=== PATIENT | male | born 1955 | race Caucasian/White ===

== ENCOUNTER 2021-02-28 19:52 | Emergency (ER) | payer MEDICARE, OTHER ==
[~2021-02-28 19:52] MED LIST: D3-5050000 UNIT PO; PANTOPRAZOLE SO40 MG PO; PERCOCET 10/321 EACH PO; SILDENAFIL CIT100 MG PO; TESTOSTERO200 MG/1 M SC/PO
[2021-02-28 20:52] LABS: BASOPHIL 0.7 % (0-2); EOSINOPHIL 6.5 % (0-7); HCT 53.9 % (42.0-52.0); HGB 18.4 g/dl (13.2-18.0); LYMPHOCYTE 29.1 % (15-48); MCHC 34.1 g/dL (32.0-36.0); MCV 90.7 fL (78.0-100.0); MONOCYTE 7.3 % (0-12); MPV 9.1 fL (6.0-9.5); NEUTROPHIL 56.1 % (41-80); NRBC 0; PLT 264 K/uL (150-400); RBC 5.94 M/uL (4.70-6.00); RDW 14.6 % (11.5-14.0); WBC 7.1 K/uL (4.0-10.5)
[2021-02-28 20:59] LABS: INR 1.04 (0.9-1.2); PTT 37.7 SECONDS (24.4-34.7)
[2021-02-28 21:03] LABS: ALBUMIN 3.8 g/dL (3.4-5.0); BILIRUBIN - TOTAL 0.5 mg/dL (0.2-1.0); BUN/CREAT RATIO (CALC) 14.9 RATIO; CREATININE 0.74 mg/dL (0.67-1.17); GLOBULIN (CALCULATION) 4.4 g/dL; MAGNESIUM 2.3 mg/dL (1.8-2.4); POTASSIUM 3.7 mmol/L (3.5-5.1); TOTAL PROTEIN 8.2 g/dL (6.4-8.2)
== END 2021-02-28 21:04 | disposition other institution (70) ==
LOC: FER 19:52
PROVIDERS: Emergency Medicine
DX: I63.9 Cerebral infarction, unspecified (principal); G81.91 Hemiplegia, unspecified affecting right dominant side; R29.703 NIHSS score 3; I10 Essential (primary) hypertension; I25.10 Atherosclerotic heart disease of native coronary artery without angina pectoris; Z95.1 Presence of aortocoronary bypass graft
CPT/HCPCS: 36415; 70450; 71045; 80053; 83735; 84484; 85025; 85610; 85730; 93005; J2997